=== PATIENT | female | born 1945 | race Caucasian/White ===

== ENCOUNTER 2017-03-22 10:33 | Outpatient (CLI) | payer MEDICARE, OTHER | END 2017-03-22 10:34 | disposition home or self-care (01) | LOC: SC 10:33 | PROVIDERS: ATTEND Internal Medicine Pulmonary Disease | DX: G47.33 Obstructive sleep apnea (adult) (pediatric) (principal) | CPT/HCPCS: 99203; G0463; 99212 ==

== ENCOUNTER 2017-03-31 13:16 | Outpatient (CLI) | payer MEDICARE, OTHER ==
--- NOTE | 2017-04-01 16:59 | Mammography Report ---
DIGITAL SCREENING MAMMOGRAM: 03/31/2017 CLINICAL INDICATION: A 71-year-old with history of benign biopsy for screening, family history of br east cancer. COMPARISON: Films from [place], [place] dated 03/23/2016, 02/15/2015, 01/24/2014, 11/11/2012, 11/04/19 13, 08/03/2011. TECHNIQUE: Routine CC and MLO projections were obtained of the breasts. FINDINGS: The breasts again demonstrate scattered fibroglandular densities bilaterally. Postoperati ve changes in the left upper outer anterior breast are stable. A few coarse, typically benign calcif ications are present. No suspicious masses, clustered microcalcifications, or regions of architectur al distortion are identified. IMPRESSION: BENIGN FINDINGS. RECOMMENDATION: Routine annual screening unless otherwise clinically indicated. BI-RADS category 2, benign findings. STANDARD QUALIFYING STATEMENTS 1. This examination was reviewed with the aid of Computer-Aided Detection (CAD). 2. A negative or benign imaging report should not delay biopsy if clinically suspicious findings are present. Consider surgical consultation if warranted. More than 5% of cancers are not identified by i maging. 3. Dense breasts may obscure an underlying neoplasm. JOB #: [id number] EXT JOB #:[id number]
== END 2017-03-31 13:17 | disposition home or self-care (01) ==
LOC: DI.S 13:16
PROVIDERS: ATTEND Internal Medicine
DX: Z12.31 Encounter for screening mammogram for malignant neoplasm of breast (principal); Z80.3 Family history of malignant neoplasm of breast
CPT/HCPCS: 77067

== ENCOUNTER 2017-05-10 10:20 | Outpatient (CLI) | payer MEDICARE, OTHER | END 2017-05-10 10:21 | disposition home or self-care (01) | LOC: SC 10:20 | PROVIDERS: ATTEND Internal Medicine Pulmonary Disease | DX: G47.33 Obstructive sleep apnea (adult) (pediatric) (principal) | CPT/HCPCS: 99213; G0463; 99212 ==

== ENCOUNTER 2017-05-17 16:47 | Outpatient (CLI) | payer MEDICARE, OTHER ==
--- NOTE | 2017-05-18 14:14 | Ultrasound Report ---
CAROTID DOPPLER: 05/17/2017 HISTORY: Vertigo, fatigue. TECHNIQUE: Real-time sonographic vascular imaging was performed by the healthcare economics manager through the carotid arteries utilizing both color-flow and Doppler spectral analysis. Multiple accounts receivable representative static images were saved for review. Vessel PSV cm/sec 2D Plaque Estimate % EDV cm/sec ICA/CCA PSV % Stenosis RCCA Prox 76 -- RCCA Dist 68 17 -- RECA 86 -- RT BULB 93 -- 23 1.3 BORIS Prox 69 -- 18 1.01 BORIS Mid 71 -- 21 1.04 BORIS Dist 92 -- 35 1.35 RVA 53 RVA flow direction: Antegrade. Vessel PSV cm/sec 2D Plaque Estimate % EDV cm/sec ICA/CCA PSV % Stenosis LCCA Prox 91 -- LCCA Dist 79 23 -- LECA 87 -- LFT BULB 77 -- 18 0.97 LICA Prox 61 -- 19 0.77 LICA Mid 46 -- 15 0.58 LICA Dist 108 -- 32 1.36 LVA 66 LVA flow direction: Antegrade. Velocity criteria are extrapolated from diameter data as defined by the Society of Radiologists in Ultrasound Consensus Conference Radiology 2003; 229; 340-346. Degree of Stenosis % ICA PSV cm/sec Plaque Estimate % ICA/CCA RSV Ratio ICA EDV cm/sec Normal < 125 None < 2.0 < 40 <50 < 125 < 50 < 2.0 < 40 50-69 125 - 130 >/= 50 2.0 - 4.0 40 - 100 >/= 70 but less than near occlusion > 230 >/= 50 > 4.0 > 100 Near occlusion High, low, or undetectable Visible lumen Variable Variable Total occlusion Undetectable No detectable lumen Not applicable Not applicable FINDINGS RIGHT: There is mild plaquing in the right carotid bifurcation, without evidence of a focal hemodynamically significant carotid stenosis. LEFT: There is mild plaquing in the left carotid bifurcation, without evidence of a focal hemodynamically significant carotid stenosis. The vertebral arteries demonstrate antegrade flow bilaterally. IMPRESSION: NO FLOW-LIMITING STENOSIS IN EITHER CAROTID SYSTEM. BILATERAL VERTEBRAL ARTERY ANTEGRADE BLOOD FLOW. MTDD
== END 2017-05-17 16:48 | disposition home or self-care (01) ==
LOC: DI 16:47
PROVIDERS: ATTEND Nurse Practitioner Family
DX: R42 Dizziness and giddiness (principal); R53.83 Other fatigue
CPT/HCPCS: 93880

== ENCOUNTER 2017-11-06 11:44 | Emergency (ER) | payer MEDICARE, OTHER ==
[2017-11-06] MEDS ORDERED: guaiFENesin/DEXTROMETHORPHAN 10 ML UDC PO STA (12:24)
[2017-11-06] MEDS ORDERED: BENZONATATE 100 MG CAPSULE PO STA (12:24)
--- NOTE | 2017-11-06 12:30 | ED Physician Documentation ---
History of Present Illness - Stated complaint Stated Complaint: COUGH/BACK PX - Chief complaint Chief Complaint: Resp - Additonal information Additional information: hx from pt fairly healthy 72 female cough and chills and myalgias since yesterday no NVD no fever Review of Systems Constitutional: reports: Chills, Myalgias, Fatigue. denies: Fever Respiratory: reports: Dyspnea, Cough GI: denies: Vomiting, Diarrhea Endocrine: denies: Easy bruising / bleeding Immunocompromised: denies: Immunocompromised PD PAST MEDICAL HISTORY - Past Medical History Cardiovascular: Hypertension, High cholesterol Respiratory: Shortness of breath, Sleep apnea, CPAP use GI: Ulcers, Chronic diarrhea, Hemorrhoids, Pancreatitis SOLDERER ASSEMBLY REPAIR: Endometriosis, Miscarriage(s) : Kidney stones HEENT: Chronic hearing loss Derm: Herpes zoster, Eczema - Past Surgical History General: Cholecystectomy, Colonoscopy, EGD Ortho: Spine surgery /SOL[employer]ER ASSEMBLY REPAIR: Hysterectomy HEENT: Cataracts, Tonsil/Adenoidectomy - Present Medications Home Medications: Ambulatory Orders Medication Instructions Recorded Confirmed Benzonatate [Tessalon] 100 mg PO TID PRN #20 capsule 11/06/17 Oseltamivir [Tamiflu] 75 mg PO BID #9 capsule 11/06/17 guaiFENesin/DEXTROMETHORPHAN 10 ml PO Q6H PRN #120 ml 11/06/17 [Robitussin Dm] - Allergies Allergies/Adverse Reactions: Allergies Allergy/AdvReac Type Severity Reaction Status Date / Time meperidine [From Demerol] Allergy Anaphylaxis Verified 11/06/17 11:58 streptomycin AdvReac lost Verified 11/06/17 11:59 hearing - Social History Does the pt smoke?: No Smoking Status: Never smoker Does the pt drink ETOH?: No Does the pt have substance abuse?: No PD ED PE NORMAL - Vitals Vital signs reviewed: Yes - General General: Alert and oriented X 3 - HEENT HEENT: PERRL - Neck Neck: Supple, no meningeal sign - Cardiac Cardiac: RRR - Respiratory Respiratory: Other (harsh deep cough, no wheeze on rales on exam, coarse breath sounds) - Abdomen Abdomen: Soft, Non tender - Extremities Extremities: Other (R amputation, other leg no edema) - Neuro Neuro: Alert and oriented X 3 Results - Vitals Vitals: Vital Signs - 24 hr 11/06/17 11:51 Temperature 36.6 C Heart Rate 57 L Respiratory 22 Rate Blood Pressure 183/75 H O2 Saturation 96 Oxygen O2 Source Room air - Labs Labs: Laboratory Tests 11/06/17 12:58 Influenza A (Rapid) Negative Influenza B (Rapid) POSITIVE H Influenza Types A,B Ag + H - Rads (name of study) CXR Radiology: See rad report (NACPD) PD MEDICAL DECISION MAKING - ED course ED course: flu B + CXR neg sx started yesterday AM comorbidities incudung lung dz discussed risks and benefits tamiflu and we agreed to try it VS reviewed - feel can tx as an outpt Departure - Departure Disposition: Home, Self Care Clinical Impression: Influenza A Condition: Good Instructions: ED Flu, Medication: Tamiflu (Oseltamivir) Follow-Up: RITA BEE MD [Primary Care Provider] - (next week if not better) Prescriptions: Benzonatate [Tessalon] 100 mg PO TID PRN #20 capsule PRN Reason: to ease cough guaiFENesin/DEXTROMETHORPHAN [Robitussin Dm] 10 ml PO Q6H PRN #120 ml PRN Reason: Cough Oseltamivir [Tamiflu] 75 mg PO BID #9 capsule Comments: You do not have pneumonia but you do have influenza I have prescribed an anti flu virus medication called tamiflu As we discussed this medication can have side effects including neurologic and psychiatric - if you develop any side effects, please stop the medication right away - if the side effects are severe call your PMD or come back to the ER
--- NOTE | 2017-11-06 13:10 | XRAY Report ---
EXAM: CHEST RADIOGRAPHY EXAM DATE: 11/06/2017 12:36 PM. CLINICAL HISTORY: Cough. COMPARISON: None. TECHNIQUE: 2 views. FINDINGS: Mildly limited exam due to positioning. Lungs/Pleura: No focal consolidation. No pleural effusion. No pneumothorax. Normal volumes. Mediastinum: Heart size is borderline enlarged. Other: None. IMPRESSION: No acute cardiopulmonary abnormality. [facility] Referring Provider Line: [phone] SITE ID: [id number]
[2017-11-06] MEDS ORDERED: OSELTAMIVIR 75 MG CAPSULE PO STA (13:57)
[2017-11-06 14:05] VITALS: BP 138/69
== END 2017-11-06 14:09 | disposition home or self-care (01) ==
LOC: ED 11:44
DX: J10.1 Influenza due to other identified influenza virus with other respiratory manifestations (principal); I45.2 Bifascicular block; I10 Essential (primary) hypertension
CPT/HCPCS: 71046; 87275; 87276; 93005; 99283; A9270